=== PATIENT | male | born 1960 | race Two or more races ===

== ENCOUNTER 2023-06-28 22:03 | Inpatient (IN) | payer OTHER ==
[~2023-06-28] VITALS: Ht 193 cm; Wt 118.4 kg
[2023-06-28 20:00] VITALS: PULSE 109
[2023-06-28] MEDS: METOCLOPRAMIDE HCL 5MG/ml INJ 2ml VIAL IV ONE (22:45)
[2023-06-28] MEDS: LABETALOL HCL 5 MG/ML 4ML SYRINGE IV ONE (22:45)
[2023-06-28 22:50] LABS: Basophils # (auto) 0 10 ^3/uL (0-0.2); Basophils % (auto) 0.1 % (0.0-2.0); Eosinophils # (auto) 0 10 ^3/uL (0-0.8); Eosinophils % (auto) 0.1 % (0.0-7.0); Hematocrit 44.5 % (41.0-53.0); Hemoglobin 14.8 g/dL (13.5-17.5); Lymphocytes # (auto) 0.8 10 ^3/uL (0.4-5.4); Lymphocytes % (auto) 8.2 % (10.0-50.0); Mean Corpuscular Hemoglobin 31.2 pg (28.0-32.0); Mean Corpuscular Hgb Conc. 33.2 g/dL (32.0-36.0); Mean Corpuscular Volume 93.7 fL (80.0-100.0); Monocytes # (auto) 0.5 10 ^3/uL (0-1.3); Monocytes % (auto) 4.7 % (0.0-12.0); Neutrophils # (auto) 8.4 10 ^3/uL (1.6-8.6); Neutrophils % (auto) 86.9 % (37.0-80.0); Red Blood Cells 4.75 10^6/uL (4.5-5.90); White Blood Cell 9.7 10^3/uL (4.4-10.8)
[2023-06-28 22:56] LABS: Alanine Aminotransferase 39 U/L (7-40); Albumin 5.3 g/dL (3.2-4.8); Alkaline Phosphatase 130 U/L (46-116); Anion Gap 11 (5-15); Aspartate Aminotransferase 44 U/L (13-40); BUN/Creatinine Ratio 10.3 (10.0-20.0); Bilirubin, Total 0.8 mg/dL (0.2-1.0); Blood Urea Nitrogen 14 mg/dL (9-23); Calcium 10.5 mg/dL (8.5-10.1); Carbon Dioxide 26 mmol/L (20-30); Chloride 104 mmol/L (98-107); Glucose 233 mg/dL (74-106); Potassium 3.6 mmol/L (3.5-5.1); Sodium 141 mmol/L (136-145); Total Protein 8.6 g/dL (5.7-8.2)
[2023-06-28 23:20] LABS: INR 1.03 (0.9-1.15); Partial Thromboplastin Time 22.5 SEC (24.5-34.5); Prothrombin Time 10.9 sec (9.3-11.8)
[2023-06-28] MEDS: hydrALAZINE HCL 20 MG/ML VL IV ONE (23:54)
[2023-06-28] MEDS: hydrALAZINE HCL 20 MG/ML VL ONE (23:55)
[2023-06-29] VITALS (9 sets, daily range): BP systolic 128–170; BP diastolic 5–113; PULSE 80–134; RESP 12–29; TEMP 98–99.3; O2SAT 94–98
[2023-06-29 00:17] LABS: Urine Bacteria None Seen /hpf (None Seen)
[2023-06-29 00:52] LABS: Urine Blood 1+ /uL (Negative); Urine Clarity Clear (Clear); Urine Color Light-Yellow (Yellow); Urine Protein, UAD 2+ (Negative); Urine Specific Gravity 1.027 (1.001-1.035); Urine Urobilinogen Normal (Negative); Urine WBC <1 /hpf (0 - 3); Urine pH 6.5 (5.0-9.0)
[2023-06-29] MEDS: hydrALAZINE HCL 20 MG/ML VL IV ONE (02:16)
[2023-06-29] MEDS: ONDANSETRON HCL 4 MG/2 ML VIAL IV ONE (03:38)
[2023-06-29] MEDS ORDERED: NITROGLYCERIN 0.4 MG SL TAB SL PRN (06:15)
[2023-06-29] MEDS ORDERED: MORPHINE SULFATE INJ 2 MG/ml SYRG IV PRN (06:15)
[2023-06-29] MEDS ORDERED: TEMAZEPAM 15 MG CAP PO PRN (06:15)
[2023-06-29] MEDS: SODIUM CHLORIDE 0.9% 1,000 ML IV ONE (06:25)
[2023-06-29] MEDS: ONDANSETRON HCL 4 MG/2 ML VIAL IV PRN (06:34)
[2023-06-29 08:07] LABS: Lactic Acid w/Reflex 2.4 mmol/L (0.4-2.0)
[2023-06-29] MEDS ORDERED: SPIR25TA8 PO (08:33)
[2023-06-29] MEDS ORDERED: APIX5TAB PO (08:33)
[2023-06-29] MEDS ORDERED: LEVE100020 PO (08:33)
[2023-06-29] MEDS ORDERED: ATOR-47 PO (08:33)
[2023-06-29] MEDS ORDERED: CLOP75TA70 PO (08:33)
[2023-06-29] MEDS ORDERED: DAPA1TAB4 PO (08:33)
[2023-06-29] MEDS ORDERED: LOS25T PO (08:33)
[2023-06-29] MEDS ORDERED: DULA1INJ SC (08:33)
[2023-06-29] MEDS ORDERED: METO200T42 PO (08:33)
[2023-06-29] MEDS: levETIRAcetam 500 MG TAB PO SCH (09:57)
[2023-06-29] MEDS: SPIRONOLACTONE 25 MG TAB PO SCH (09:57)
[2023-06-29] MEDS: LOSARTAN POTASSIUM 25 MG TAB PO SCH (10:00)
[2023-06-29 12:04] LABS: Amphetamine Screen, Urine Neg (NEGATIVE); Barbiturate Scree,Urine Neg (NEGATIVE); Benzodiazephine Screen, Urine Neg (NEGATIVE); Cannabinoid Screen, Urine Neg (NEGATIVE); Cocaine Screen, Urine Neg (NEGATIVE); Opiate Scree,Urine Neg (NEGATIVE); Phencyclidine Screen, Urine Neg (NEGATIVE)
[2023-06-29] MEDS: APIXABAN 5 MG TAB PO SCH (12:09)
[2023-06-29] MEDS: METOPROLOL SUCCINATE XL 50 MG TAB PO SCH (12:09)
[2023-06-29] MEDS: DEXTROSE (50%) 50ML SYRG IV ONE (12:10)
[2023-06-29] MEDS: ACCU-CHEK COMFORT CURVE STRIP VI ONE (12:11)
[2023-06-29 12:28] LABS: Triglycerides 104 mg/dL (< 150)
[2023-06-29 12:29] LABS: LDL Cholesterol 131 mg/dL (< 100)
[2023-06-29 12:30] LABS: HDL Cholesterol 43 mg/dL (40-59)
[2023-06-29 12:31] LABS: Cholesterol 204 mg/dL (< 200)
[2023-06-29 12:34] LABS: Free T4 (Free Thyroxine) 1.49 ng/dL (0.89-1.76)
[2023-06-29] MEDS: InsuLIN REG 1unit/0.01ml Soln (100units/ml) SC ONE (12:56)
[2023-06-29] MEDS: LABETALOL HCL 5 MG/ML 4ML SYRINGE IV PRN (15:51)
[2023-06-29] MEDS ORDERED: DEXTROSE (50%) 50ML SYRG IV PRN (18:15)
[2023-06-29] MEDS: METOCLOPRAMIDE HCL 10 MG TAB PO PRN (20:18)
[2023-06-29] MEDS: ATORVASTATIN 20 MG TAB PO SCH (21:14)
[2023-06-29] MEDS: ACCU-CHEK COMFORT CURVE STRIP VI SCH (21:19)
[2023-06-29] MEDS: InsuLIN REG 1unit/0.01ml Soln (100units/ml) SC SCH (21:27)
[2023-06-30] VITALS (9 sets, daily range): BP systolic 125–197; BP diastolic 77–130; PULSE 67–114; RESP 14–20; TEMP 97.9–98.8; O2SAT 91–99
[2023-06-30 06:44] LABS: Basophils # (auto) 0 10 ^3/uL (0-0.2); Basophils % (auto) 0.1 % (0.0-2.0); Eosinophils # (auto) 0 10 ^3/uL (0-0.8); Hematocrit 48.8 % (41.0-53.0); Hemoglobin 16.1 g/dL (13.5-17.5); Lymphocytes # (auto) 0.7 10 ^3/uL (0.4-5.4); Lymphocytes % (auto) 7.8 % (10.0-50.0); Mean Corpuscular Hemoglobin 30.8 pg (28.0-32.0); Mean Corpuscular Hgb Conc. 33.1 g/dL (32.0-36.0); Mean Corpuscular Volume 93.2 fL (80.0-100.0); Monocytes # (auto) 0.7 10 ^3/uL (0-1.3); Monocytes % (auto) 7.6 % (0.0-12.0); Neutrophils # (auto) 7.7 10 ^3/uL (1.6-8.6); Neutrophils % (auto) 84.5 % (37.0-80.0); Red Blood Cells 5.23 10^6/uL (4.5-5.90); Red Cell Distribution Width 14.9 % (11.8-14.3); White Blood Cell 9.2 10^3/uL (4.4-10.8)
[2023-06-30 06:55] LABS: Alanine Aminotransferase 29 U/L (7-40); Alkaline Phosphatase 121 U/L (46-116); Anion Gap 7 (5-15); Aspartate Aminotransferase 27 U/L (13-40); BUN/Creatinine Ratio 12.9 (10.0-20.0); Blood Urea Nitrogen 20 mg/dL (9-23); Calcium 10.7 mg/dL (8.7-10.4); Carbon Dioxide 31 mmol/L (20-30); Chloride 101 mmol/L (98-107); Glucose 241 mg/dL (74-106); Potassium 3.5 mmol/L (3.5-5.1); Sodium 139 mmol/L (136-145)
[2023-06-30 06:56] LABS: Albumin 5.2 g/dL (3.2-4.8); Total Protein 8.6 g/dL (5.7-8.2)
[2023-06-30] MEDS: LOSARTAN POTASSIUM 50 MG TAB PO SCH (09:36)
[2023-06-30] MEDS: LABETALOL HCL 5 MG/ML 4ML SYRINGE IV PRN (13:59)
[2023-06-30] MEDS: SODIUM CHLORIDE 0.9% 1,000 ML IV SCH (16:42)
[2023-07-01] VITALS (9 sets, daily range): BP systolic 136–186; BP diastolic 72–119; PULSE 65–105; RESP 16–20; TEMP 97.4–98.4; O2SAT 94–98
[2023-07-01 06:03] LABS: Basophils # (auto) 0 10 ^3/uL (0-0.2); Basophils % (auto) 0.2 % (0.0-2.0); Eosinophils # (auto) 0 10 ^3/uL (0-0.8); Eosinophils % (auto) 0.1 % (0.0-7.0); Hematocrit 51.2 % (41.0-53.0); Hemoglobin 17.2 g/dL (13.5-17.5); Lymphocytes # (auto) 1.4 10 ^3/uL (0.4-5.4); Lymphocytes % (auto) 12.7 % (10.0-50.0); Mean Corpuscular Hemoglobin 31.2 pg (28.0-32.0); Mean Corpuscular Hgb Conc. 33.7 g/dL (32.0-36.0); Mean Corpuscular Volume 92.8 fL (80.0-100.0); Monocytes # (auto) 1.1 10 ^3/uL (0-1.3); Monocytes % (auto) 10.4 % (0.0-12.0); Neutrophils # (auto) 8.3 10 ^3/uL (1.6-8.6); Neutrophils % (auto) 76.6 % (37.0-80.0); Nucleated Red Blood Cells % 0.1 %; Red Blood Cells 5.52 10^6/uL (4.5-5.90); Red Cell Distribution Width 14.6 % (11.8-14.3); White Blood Cell 10.8 10^3/uL (4.4-10.8)
[2023-07-01 06:24] LABS: Alanine Aminotransferase 29 U/L (7-40); Alkaline Phosphatase 125 U/L (46-116); Anion Gap 10 (5-15); Aspartate Aminotransferase 29 U/L (13-40); Calcium 10.3 mg/dL (8.5-10.1); Carbon Dioxide 31 mmol/L (20-30); Chloride 97 mmol/L (98-107); Glucose 207 mg/dL (74-106); Potassium 3.6 mmol/L (3.5-5.1); Sodium 138 mmol/L (136-145)
[2023-07-01 06:25] LABS: Total Protein 8.2 g/dL (5.7-8.2)
[2023-07-01 06:36] LABS: Blood Urea Nitrogen 30 mg/dL (9-23)
[2023-07-01] MEDS ORDERED: SODIUM CHLORIDE 0.9% 1,000 ML IV SCH (10:15)
[2023-07-01] MEDS ORDERED: LABETALOL HCL 5 MG/ML 4ML SYRINGE IV PRN (10:45)
[2023-07-01] MEDS: SODIUM CHLORIDE 0.9% 1,000 ML IV SCH (10:45)
[2023-07-01] MEDS: NIFEdipine ER 30 MG TAB PO ONE (10:51)
[2023-07-01] MEDS: amLODIPine BESYLATE 5 MG TAB PO ONE (10:51)
[2023-07-02] VITALS (7 sets, daily range): BP systolic 93–131; BP diastolic 63–80; PULSE 60–97; RESP 16–18; TEMP 97.4–98.6; O2SAT 93–96
[2023-07-02 06:09] LABS: Basophils # (auto) 0 10 ^3/uL (0-0.2); Basophils % (auto) 0.1 % (0.0-2.0); Eosinophils # (auto) 0 10 ^3/uL (0-0.8); Eosinophils % (auto) 0.2 % (0.0-7.0); Hematocrit 49.9 % (41.0-53.0); Hemoglobin 16.6 g/dL (13.5-17.5); Lymphocytes # (auto) 1.3 10 ^3/uL (0.4-5.4); Lymphocytes % (auto) 16.1 % (10.0-50.0); Mean Corpuscular Hemoglobin 31.2 pg (28.0-32.0); Mean Corpuscular Hgb Conc. 33.3 g/dL (32.0-36.0); Mean Corpuscular Volume 93.7 fL (80.0-100.0); Monocytes # (auto) 1.1 10 ^3/uL (0-1.3); Monocytes % (auto) 13.7 % (0.0-12.0); Neutrophils # (auto) 5.9 10 ^3/uL (1.6-8.6); Neutrophils % (auto) 69.9 % (37.0-80.0); Nucleated Red Blood Cells % 0.1 %; Red Blood Cells 5.33 10^6/uL (4.5-5.90); Red Cell Distribution Width 14.7 % (11.8-14.3); White Blood Cell 8.4 10^3/uL (4.4-10.8)
[2023-07-02 06:25] LABS: Chloride 98 mmol/L (98-107); Potassium 3.5 mmol/L (3.5-5.1); Sodium 136 mmol/L (136-145)
[2023-07-02 06:26] LABS: Anion Gap 9 (5-15); Calcium 9.5 mg/dL (8.5-10.1); Carbon Dioxide 29 mmol/L (20-30)
[2023-07-02 06:31] LABS: Glucose 189 mg/dL (74-106)
[2023-07-02 06:37] LABS: BUN/Creatinine Ratio 15.9 (10.0-20.0); Blood Urea Nitrogen 38 mg/dL (9-23)
[2023-07-02] MEDS: NIFEdipine ER 30 MG TAB PO SCH (09:23)
[2023-07-02] MEDS ORDERED: amLODIPine BESYLATE 5 MG TAB PO SCH (10:00)
[2023-07-02 17:28] LABS: Urine Bacteria FEW /hpf (None Seen); Urine Blood Negative /uL (Negative); Urine Clarity Clear (Clear); Urine Color Light-Yellow (Yellow); Urine Hyaline Cast FEW /lpf (0 - 2); Urine Mucus FEW (None Seen); Urine Protein, UAD Negative (Negative); Urine Specific Gravity 1.019 (1.001-1.035); Urine Urobilinogen Normal (Negative); Urine WBC 1 /hpf (0 - 3); Urine pH 5.5 (5.0-9.0)
[2023-07-02 17:45] LABS: Protein, Urine 16.2 mg/dL (0.0-11.9)
[2023-07-02 17:48] LABS: Creatinine, Urine 158.36 mg/dL (30.0-125.0)
[2023-07-03] VITALS (8 sets, daily range): BP systolic 102–146; BP diastolic 64–90; PULSE 83–97; RESP 14–18; TEMP 98–98.7; O2SAT 92–99
[2023-07-03 07:36] LABS: Alanine Aminotransferase 39 U/L (7-40); Albumin 3.7 g/dL (3.2-4.8); Alkaline Phosphatase 106 U/L (46-116); Anion Gap 8 (5-15); Aspartate Aminotransferase 45 U/L (13-40); BUN/Creatinine Ratio 18.8 (10.0-20.0); Blood Urea Nitrogen 37 mg/dL (9-23); Calcium 8.6 mg/dL (8.5-10.1); Carbon Dioxide 26 mmol/L (20-30); Chloride 102 mmol/L (98-107); Creatine Kinase IFCC 136 U/L (46-171); Glucose 153 mg/dL (74-106); Potassium 3.3 mmol/L (3.5-5.1); Sodium 136 mmol/L (136-145)
[2023-07-03 07:37] LABS: Bilirubin, Total 0.9 mg/dL (0.2-1.0); Phosphorus 4.2 mg/dL (2.4-5.1)
[2023-07-03 07:48] LABS: Uric Acid 9.8 mg/dL (3.7-9.2)
[2023-07-03] MEDS: POTASSIUM CHL 20 Meq TABLET PO ONE (09:40)
[2023-07-03 13:35] LABS: Chloride 102 mmol/L (98-107); Potassium 3.6 mmol/L (3.5-5.1); Sodium 137 mmol/L (136-145)
[2023-07-03 13:36] LABS: Anion Gap 5 (5-15); Calcium 8.7 mg/dL (8.5-10.1); Carbon Dioxide 30 mmol/L (20-30)
[2023-07-03 13:41] LABS: BUN/Creatinine Ratio 29.4 (10.0-20.0); Glucose 168 mg/dL (74-106)
[2023-07-03 13:42] LABS: Blood Urea Nitrogen 55 mg/dL (9-23)
[2023-07-04] VITALS (8 sets, daily range): BP systolic 118–138; BP diastolic 60–82; PULSE 57–104; RESP 16–20; TEMP 97.7–98.9; O2SAT 93–98
[2023-07-04] MEDS: IOHEXOL 350 MG/ML 100ML IJ ONE (07:43)
[2023-07-04] MEDS: SODIUM CHLORIDE 0.9% 1,000 ML IV SCH (10:20)
[2023-07-04 10:57] LABS: Basophils # (auto) 0 10 ^3/uL (0-0.2); Basophils % (auto) 0.5 % (0.0-2.0); Eosinophils # (auto) 0.2 10 ^3/uL (0-0.8); Eosinophils % (auto) 3.8 % (0.0-7.0); Hematocrit 39.4 % (41.0-53.0); Hemoglobin 13.3 g/dL (13.5-17.5); Lymphocytes # (auto) 0.9 10 ^3/uL (0.4-5.4); Lymphocytes % (auto) 19.7 % (10.0-50.0); Mean Corpuscular Hemoglobin 31.3 pg (28.0-32.0); Mean Corpuscular Hgb Conc. 33.6 g/dL (32.0-36.0); Monocytes # (auto) 0.6 10 ^3/uL (0-1.3); Monocytes % (auto) 13.4 % (0.0-12.0); Neutrophils # (auto) 2.7 10 ^3/uL (1.6-8.6); Neutrophils % (auto) 62.6 % (37.0-80.0); Red Blood Cells 4.24 10^6/uL (4.5-5.90); Red Cell Distribution Width 14.3 % (11.8-14.3); White Blood Cell 4.3 10^3/uL (4.4-10.8)
[2023-07-04 11:01] LABS: Anion Gap 6 (5-15); Calcium 8.3 mg/dL (8.5-10.1); Carbon Dioxide 25 mmol/L (20-30); Chloride 108 mmol/L (98-107); Potassium 3.2 mmol/L (3.5-5.1); Sodium 139 mmol/L (136-145)
[2023-07-04 11:06] LABS: BUN/Creatinine Ratio 24.6 (10.0-20.0); Glucose 199 mg/dL (74-106)
[2023-07-04 11:26] LABS: Blood Urea Nitrogen 34 mg/dL (9-23)
[2023-07-04] MEDS: POTASSIUM CHL 20 Meq TABLET PO ONE (21:38)
[2023-07-05 01:00] VITALS: BP 121/70; PULSE 83; RESP 19; TEMP 98.9; O2SAT 95
[2023-07-05 04:59] VITALS: BP 122/57; PULSE 73; RESP 20; TEMP 97.8; O2SAT 97
[2023-07-05 07:29] LABS: Basophils # (auto) 0 10 ^3/uL (0-0.2); Basophils % (auto) 0.3 % (0.0-2.0); Eosinophils # (auto) 0.2 10 ^3/uL (0-0.8); Eosinophils % (auto) 5.3 % (0.0-7.0); Hematocrit 40.1 % (41.0-53.0); Hemoglobin 13.5 g/dL (13.5-17.5); Lymphocytes # (auto) 1.3 10 ^3/uL (0.4-5.4); Lymphocytes % (auto) 32.2 % (10.0-50.0); Mean Corpuscular Hemoglobin 31.4 pg (28.0-32.0); Mean Corpuscular Hgb Conc. 33.7 g/dL (32.0-36.0); Mean Corpuscular Volume 93.1 fL (80.0-100.0); Monocytes # (auto) 0.6 10 ^3/uL (0-1.3); Neutrophils # (auto) 1.9 10 ^3/uL (1.6-8.6); Neutrophils % (auto) 48.2 % (37.0-80.0); Nucleated Red Blood Cells % 0.2 %; Red Blood Cells 4.31 10^6/uL (4.5-5.90); Red Cell Distribution Width 13.8 % (11.8-14.3)
[2023-07-05 07:33] LABS: Anion Gap 7 (5-15); Calcium 8.6 mg/dL (8.5-10.1); Carbon Dioxide 21 mmol/L (20-30); Chloride 109 mmol/L (98-107); Potassium 3.9 mmol/L (3.5-5.1); Sodium 137 mmol/L (136-145)
[2023-07-05 07:39] LABS: BUN/Creatinine Ratio 16.2 (10.0-20.0); Blood Urea Nitrogen 16 mg/dL (9-23); Glucose 129 mg/dL (74-106)
[2023-07-05 08:00] VITALS: PULSE 82; RESP 18; O2SAT 98
[2023-07-05 09:00] VITALS: BP 137/75; PULSE 75; RESP 20; TEMP 98.2; O2SAT 98
[2023-07-05] MEDS ORDERED: NIFE1TAB31 PO (10:01)
[2023-07-05 12:39] VITALS: BP 120/76; PULSE 75; RESP 18; TEMP 36.8; O2SAT 96
[2023-07-05 13:00] VITALS: BP 120/76; PULSE 88; RESP 18; TEMP 97.8; O2SAT 94
== END 2023-07-05 13:00 | disposition home or self-care (01) | DRG 640 ==
LOC: ER 22:03 → TELE 06-29 06:07 → TELE-WESTW 06-29 08:13
PROVIDERS: ADMIT Internal Medicine Geriatric Medicine; ATTEND Internal Medicine Geriatric Medicine
DX: E86.0 Dehydration (principal); N17.0 Acute kidney failure with tubular necrosis; I50.32 Chronic diastolic (congestive) heart failure; I13.0 Hypertensive heart and chronic kidney disease with heart failure and stage 1 through stage 4 chronic kidney disease, or unspecified chronic kidney disease; I65.23 Occlusion and stenosis of bilateral carotid arteries; E87.20 Acidosis, unspecified; I16.0 Hypertensive urgency; E78.5 Hyperlipidemia, unspecified; N18.31 Chronic kidney disease, stage 3a; E11.22 Type 2 diabetes mellitus with diabetic chronic kidney disease; K80.20 Calculus of gallbladder without cholecystitis without obstruction; G40.909 Epilepsy, unspecified, not intractable, without status epilepticus; I25.2 Old myocardial infarction; Z86.73 Personal history of transient ischemic attack (TIA), and cerebral infarction without residual deficits; T38.3X5A Adverse effect of insulin and oral hypoglycemic [antidiabetic] drugs, initial encounter
CPT/HCPCS: 36415; 70496; 71045; 74176; 76775; 80048; 80053; 80061; 80307; 80320; 81001; 82306; 82550; 82570; 82607; 82962; 83036; 83605; 83880; 84100; 84156; 84300; 84439; 84443; 84484; 84550; 85025; 85379; 85610; 85730; 93005; 93306; 93970; G0378; J1815; J2405; J3490